=== PATIENT | male | born 1990 | race African-American/Black ===

== ENCOUNTER 2019-04-29 23:54 | Emergency (ER) | payer OTHER ==
[~2019-04-29] VITALS: Ht 177.8 cm; Wt 78.5 kg
--- NOTE | 2019-04-30 00:23 | NUR ---
30/m pt bibself from home, accompanied by boyfriend at bedside. pt c/o redness and itchiness on hands & feet for the past 2 days with burning sensation. took benadryl & franklin at home with no relief. pt is afebrile at this time. pt states that he had a slight fever 2 days ago when the symptoms started. pt is a/ox4, verbal, able to make needs known. no s/s of acute distress or sob noted. vs stable. pt is resting in bed, waiting to be seen by .
[2019-04-30 00:59] LABS: BASOPHILS % (AUTO) 0.3 % (0.0-2.0); EOSINOPHILS % (AUTO) 0.8 % (0.0-6.0); HEMATOCRIT 44 % (39-51); HEMOGLOBIN 14.5 g/dL (13.5-17.5); LYMPHOCYTES # (AUTO) 1.3 /CMM (0.8-4.8); LYMPHOCYTES % (AUTO) 16.6 % (20.0-44.0); MEAN CORPUSCULAR HGB CONC 33 g/dl (31.0-36.0); MEAN CORPUSCULAR VOLUME 86 fL (80-96); MONOCYTES # (AUTO) 0.7 /CMM (0.1-1.30); MONOCYTES % (AUTO) 9.4 % (2.0-12.0); NEUTROPHILS # (AUTO) 5.7 /CMM (1.8-8.9); NEUTROPHILS % (AUTO) 72.9 % (43.0-81.0); PLATELET COUNT (AUTO) 260 /CMM (150-450); RED BLOOD CELL COUNT(AUTO) 5.17 MIL/uL (4.5-6.0); WHITE BLOOD COUNT (AUTO) 7.8 K/uL (4.3-11.0)
[2019-04-30] MEDS ORDERED: diphenhydrAMINE HCL 50 MG/ML VIAL ONE (00:59)
[2019-04-30] MEDS ORDERED: diphenhydrAMINE HCL 50 MG/ML VIAL IV ONE (01:00)
[2019-04-30] MEDS ORDERED: methylPREDNISolone SOD SUCC 125 MG/2ML VIAL ONE (01:00)
[2019-04-30] MEDS ORDERED: methylPREDNISolone SOD SUCC 125 MG/2ML VIAL IV ONE (01:00)
[2019-04-30] MEDS ORDERED: KETOROLAC TROMETHAMINE INJ 30 MG/ML VIAL IV ONE (01:00)
[2019-04-30] MEDS ORDERED: KETOROLAC TROMETHAMINE 15 MG/ML VIAL ONE (01:00)
[2019-04-30] MEDS ORDERED: IV NS 0.9% 1,000 ML BAG IV ONE (01:00)
[2019-04-30 01:08] LABS: CALCIUM, SERUM 9.3 mg/dL (8.5-10.1); CREATININE 0.9 mg/dL (0.6-1.3); POTASSIUM 3.9 mmol/L (3.5-5.1)
[2019-04-30 01:14] LABS: BILIRUBIN,DIRECT 0.1 mg/dL (0.0-0.2); BILIRUBIN,TOTAL 0.4 mg/dL (0.2-1.0); TOTAL PROTEIN, SERUM 7.9 g/dL (6.4-8.2)
[2019-04-30 01:18] LABS: MONOTEST NEGATIVE (NEGATIVE)
--- NOTE | 2019-04-30 01:18 | NUR ---
RAPID FLU CX COLLECTED AND SENT.
--- NOTE | 2019-04-30 01:18 | NUR ---
IV STARTED ON RAC #18G, LABS DRAWN. ALL MEDS GIVEN.
--- NOTE | 2019-04-30 02:15 | NUR ---
Patient discharged to home in stable condition. Written and verbal after care instructions given. Patient verbalizes understanding of instruction. Pt left facility on foot with steady gait. No s/s of acute distress or sob noted. Instructed not to drive; boyfriend at bedside will be driving pt back home. vs stable. iv access on RAC removed, secured with gauze and tape. No s/s of bleeding noted.
[2019-04-30 02:22] VITALS: BP 110/61
== END 2019-04-30 02:22 | disposition home or self-care (01) ==
LOC: ER 23:58
DX: L30.9 Dermatitis, unspecified (principal); F17.210 Nicotine dependence, cigarettes, uncomplicated
CPT/HCPCS: 36415; 80048; 80076; 83690; 85025; 86308; 86780; 87804 ×2; 96374; 96375; 99283; J1200; J1885; J2930; J7030

== ENCOUNTER 2021-07-06 15:56 | Emergency (ER) | payer OTHER ==
[~2021-07-06] VITALS: Ht 180.3 cm; Wt 83.9 kg
[2021-07-06 16:05] VITALS: BP 142/86
--- NOTE | 2021-07-06 16:07 | NUR ---
SEEN AND EXAMINED BY BRONWYN BRICENO
--- NOTE | 2021-07-06 16:27 | NUR ---
COVID SWAB AND STREP SWAB DONE AND SENT TO LAB
[2021-07-06] MEDS ORDERED: IBUP-1955 PO (17:17)
[2021-07-06] MEDS ORDERED: PENICILLIN G BENZATHINE 2.4 MMU/4 ML ML IM ONE ×2 (17:19→17:30)
--- NOTE | 2021-07-06 17:36 | NUR ---
Patient discharged to home in stable condition. Written and verbal after care instructions given. Patient verbalizes understanding of instruction.
== END 2021-07-06 17:36 | disposition home or self-care (01) ==
LOC: ER 16:00
DX: J02.0 Streptococcal pharyngitis (principal); B95.0 Streptococcus, group A, as the cause of diseases classified elsewhere; F17.210 Nicotine dependence, cigarettes, uncomplicated; Z20.822 Contact with and (suspected) exposure to COVID-19
CPT/HCPCS: 87426; 87880; 96372; 99283; C9803; J0558; 86403-TC